=== PATIENT | female | born 1990 | race Caucasian/White ===

== ENCOUNTER 2020-12-04 11:12 | Outpatient (CLI) | payer OTHER, SELFPAY ==
[2020-12-04 12:33] LABS: Thyroid Stimulating Hormone 0.037 uIU/mL (0.465-4.680)
== END 2020-12-04 11:13 | disposition home or self-care (01) ==
PROVIDERS: Visit Provider Advanced Practice Midwife
DX: E03.9 Hypothyroidism, unspecified (principal)
CPT/HCPCS: 36415; 84439; 84443

== ENCOUNTER 2021-05-22 08:23 | Emergency (ER) | payer MEDICAID, SELFPAY ==
--- NOTE | ~2021-05-22 | CT_ITS ---
EXAMINATION: CT abdomen pelvis wo con DATE: 05/22/2021 10:43 INDICATION: Flank pain, urinary tract infection with hematuria TECHNIQUE: Computed tomography (CT) of the abdomen and pelvis was performed without intravenous contr ast. Automated exposure control and iterative reconstruction technique were employed. The dose-length product was 431.78 mGy-cm. COMPARISON: None FINDINGS: Lung bases are clear. Heart size is normal. No pericardial or pleural effusion. Liver, gallbladder, s pleen, pancreas and bilateral adrenal glands are normal. There is subtle haziness to the left perinep hric and renal sinus fat raising suspicion for ascending urinary tract infection. Right kidney is nor mal. No urolithiasis. There are few phleboliths in the pelvis. Bladder is normal. IUD in expected pos ition within the anteverted uterus. Bilateral adnexa are unremarkable. No abnormal bowel wall thicken ing or obstruction. No free intraperitoneal gas or fluid. No pathologically enlarged abdominal or pel abelardo lymphadenopathy. Bones are unremarkable. IMPRESSION: 1. Subtle inflammatory haziness to the left perinephric and renal sinus fat raising suspicion for asc ending urinary tract infection. No urolithiasis. 2. IUD in expected position. Reviewed, dictated and finalized at location A. IMPRESSION: 1. Subtle inflammatory haziness to the left perinephric and renal sinus fat [place] suspicion for ascending urinary tract infection. No urolithiasis. 2. IUD in expected position.
--- NOTE | ~2021-05-22 | XR_ITS ---
EXAMINATION: XR abdomen/kub 1V DATE: 05/22/2021 10:12 INDICATION: Left-sided flank pain TECHNIQUE: A supine view of the abdomen on 2 radiographs was obtained. COMPARISON: None FINDINGS: A few small round calcifications in the pelvis and the largest on the right measuring 4 mm and measur ing between 2-3 mm on the left, most likely representing phleboliths although distal ureteral stones cannot be absolutely excluded. IUD in expected position in the central pelvis. Normal bowel gas patte rn. Bones are unremarkable. IMPRESSION: 1. A few 2-4 mm round calcifications in the pelvis most likely representing phleboliths although a di stal ureteral stone on either side cannot be excluded. 2. IUD in expected position. Reviewed, dictated and finalized at location A. IMPRESSION: 1. A few 2-4 mm round calcifications in the pelvis most likely representing phl eboliths although a distal ureteral stone on either side cannot be excluded. 2. IUD in expected position.
--- NOTE | ~2021-05-22 | XR_ITS ---
EXAMINATION: XR chest 1V portable DATE: 05/22/2021 09:05 INDICATION: Fever and chills TECHNIQUE: frontal view of the chest was obtained. COMPARISON: Chest radiograph dated 01/03/2020 FINDINGS: Small linear band of discoid atelectasis at the right lung base. No pulmonary edema, pleural effusion or pneumothorax. The cardiomediastinal silhouette is normal. Visualized bones and soft tissues are u nremarkable. IMPRESSION: 1. Mild discoid atelectasis at the right lung base. No other acute cardiopulmonary disease. Reviewed, dictated and finalized at location A. IMPRESSION: 1. Mild discoid atelectasis at the right lung base. No other acute cardiopulmon chetan disease.
[2021-05-22 08:31] VITALS: BP 117/79; PULSE 94; RESP 15; TEMP 37.1; O2SAT 100
--- NOTE | 2021-05-22 09:39 | ED.GENADULT ---
HPI - General Adult General Chief complaint: Urogenital-Female Stated complaint: back pain, fever/chills Time Seen by Provider: 05/22/21 08:29 Source: patient and RN notes reviewed Mode of arrival: ambulatory Limitations: no limitations History of Present Illness HPI narrative: This is a 31 year old female who presents for evaluation of fever. Patient states she developed fever and chills on Wednesday. She reports she last had a fever last night. Her temperature was 101. She denies having fever today and she has not taken any medication today. She also reports associated body aches, lower back pain. She denies cough, sob, vomiting or diarrhea. She reports abdominal pain when she has fever and body aches. She works in [employer] so she was worried about COVID exposure. She was tested for COVID yesterday and her results were negative. She spoke to a friend who recommended that she come to ER for evaluation of possible kidney stone or kidney infection. She denies dysuria, increased urinary frequency or hematuria. Her pain is minimal now. Related Data Home Medications Medication Instructions Recorded Confirmed levothyroxine 05/22/21 Allergies Allergy/AdvReac Type Severity Reaction Status Date / Time No Known Allergies Allergy Verified 05/22/21 08:45 Review of Systems Review of Systems: All systems reviewed & are unremarkable except as noted in HPI and below Constitutional: Constitutional: Reports chills, Reports fatigue and Reports fever(s) ENT: Denies nasal congestion and Denies sore throat Cardiovascular: Cardiovascular: Denies chest pain Respiratory: Respiratory: Denies cough and Denies dyspnea Gastrointestinal: Gastrointestinal: Reports abdominal pain, Denies diarrhea, Reports nausea and Denies vomiting Genitourinary: Genitourinary: Denies hematuria and Denies dysuria Musculoskeletal: Musculoskeletal: Reports back pain and Reports myalgias PMFSH Past Medical History Medical History (Updated 05/22/21 @ 12:45 by Jeaneth Méndez MD) Hypothyroidism Surgical History Surgical History (Updated 05/22/21 @ 09:40 by Jeaneth Méndez MD) Hx of appendectomy Social History Social History (Updated 05/22/21 @ 09:40 by Jeaneth Méndez MD) Smoking status: Never smoker Exam Narrative: GENERAL: Well-appearing, well-nourished, and in no acute distress. HEAD: Normocephalic, atraumatic EYES: PERRLA and EOMI, conjunctiva clear without discharge EARS: TM's clear bilaterally without erythema or dullness NOSE: Nares clear, no rhinorrhea or epistaxis THROAT:Mucous membranes moist, Oropharynx normal without erythema, exudate, peritonsillar swelling or fluctuance NECK: Supple, without lymphadenopathy or mass RESPIRATORY: No respiratory distress, Airway patent, Respirations non-labored, Clear to auscultation without rales, rhonchi or wheeze HEART: Regular rate and rhythm. No murmur heard. Normal peripheral pulses. ABDOMEN: Soft, nontender, nondistended, normal active bowel sounds. No masses. No rebound or guarding, No organomegaly. EXTREMITIES: No edema, normal strength with full range of motion. SKIN: Warm, dry, normal color without rash NEURO: Alert and oriented x3. CN 2-12 grossly intact. No focal deficits. PSYCH: Normal mood and affect. Course Reevaluation(s) Reevaluation #1: Patient was found to have ascending UTI with out kidney stones. Labs are other levi unremarkable. I discussed discharge plan and treatment. Date: 05/22/21 Time: 12:43 Vital Signs Vital signs: Vital Signs Temperature 98.7 F 05/22/21 08:31 Pulse Rate 94 05/22/21 08:31 Respiratory Rate 15 05/22/21 08:31 Blood Pressure 117/79 05/22/21 08:31 Pulse Oximetry 100 05/22/21 08:31 Temperature 99.9 F H 05/22/21 11:33 Pulse Rate 82 05/22/21 13:00 Respiratory Rate 16 05/22/21 13:00 Blood Pressure 101/64 05/22/21 13:00 Pulse Oximetry 100 05/22/21 13:00 Medical Decision Ma
[2021-05-22 09:44] LABS: Basophils Percent Auto 0.3 % (0.2-1.2); Eosinophils Absolute Auto 0.2 K/mm3 (0-0.3); Eosinophils Percent Auto 1.7 % (0-4.4); Hematocrit 39.1 % (37.0-47.0); Hemoglobin 12.7 g/dL (12.0-15.0); Immature Granulocyte Absolute 0.04 K/mm3 (0.00-0.031); Immature Granulocyte Percent A 0.4 % (0-0.5); Lymphocytes Absolute Auto 1.13 K/mm3 (0.9-3.2); Lymphocytes Percent Auto 10.2 % (18.3-44.2); Mean Corpuscular HGB Conc 32.5 g/dl (32-36); Mean Corpuscular Hemoglobin 28.5 pg (26-34); Mean Corpuscular Volume 87.9 fl (80-100); Mean Platelet Volume 10.7 fl (7.4-10.4); Monocytes Absolute Auto 1.3 K/mm3 (0.1-0.6); Monocytes Percent Auto 12.1 % (2.6-8.5); Neutrophils Absolute Auto 8.4 K/mm3 (1.3-6.7); Neutrophils Percent Auto 75.3 % (45.5-73.1); Platelet Count Result 257 k/mm3 (150-375); Red Blood Count 4.45 M/mm3 (4.2-5.4); Red Cell Distribution Width 14.1 % (11.5-14.5); White Blood Count 11.1 K/mm3 (4.5-10.0)
[2021-05-22 09:49] LABS: Add Urine Microscopic? YES; Appearance Urine Cloudy (Clear); Bacteria Urine 1+ /hpf; Bilirubin Urine Negative (Negative); Blood Urine 1+ (Negative); Color Urine Yellow (Yellow); Glucose Urine UA Negative (Negative); Ketones Urine Negative (Negative); Leukocyte Esterase Ur 2+ LEU/UL (Negative); Mucus Urine Rare /lpf; Nitrate Urine Positive (Negative); Protein Urine 1+ mg/dL (Negative); Specific Grav Ur 1.017 (1.001-1.035); Squamous Epithelial Cell Urine Moderate /hpf (Few); Urobilinogen Urine Negative mg/dL (<2.0); WBC Urine >75 /hpf
[2021-05-22 09:54] LABS: Lactic Acid Reflex 0.7 mmol/L (0.7-2.1)
[2021-05-22 09:59] LABS: Alanine Aminotransferase 19 U/L (4-35); Albumin Level 3.8 g/dL (3.5-5.1); Alkaline Phosphatase 60 U/L (38-126); Anion Gap 11 mmol/L (8-16); Aspartate Amino Transferase 22 U/L (14-36); Bilirubin,Total 0.5 mg/dL (0.2-1.3); Blood Urea Nitrogen 12 mg/dL (7-17); Calcium 9.3 mg/dL (8.4-10.2); Carbon Dioxide 24 mmol/L (22-30); Chloride 104 mmol/L (98-107); Estimated Glomerular Filt Rate > 60; Glucose 64 mg/dL (65-110); Lipase 60 U/L (23-300); Magnesium 1.8 mg/dL (1.6-2.3); Potassium 3.9 mmol/L (3.4-5.0); Sodium 139 mmol/L (137-145)
[2021-05-22 11:00] VITALS: BP 107/61; PULSE 88; RESP 15; O2SAT 99
[2021-05-22 11:33] VITALS: TEMP 37.7
[2021-05-22] MEDS: KETOROLAC 30 MG/ML VIAL (*BKC) IV PUSH (11:43)
[2021-05-22 13:00] VITALS: BP 101/64; PULSE 82; RESP 16; O2SAT 100
== END 2021-05-22 13:17 | disposition home or self-care (01) ==
PROVIDERS: Emergency Provider General Practice; PCP Family Medicine
DX: N12 Tubulo-interstitial nephritis, not specified as acute or chronic (principal); E03.9 Hypothyroidism, unspecified; Z97.5 Presence of (intrauterine) contraceptive device
CPT/HCPCS: 36415; 71045; 74018; 74176; 80053; 81001; 83605; 83690; 83735; 85025; 86140; 87077; 87081; 87086; 87088; 87186; 87804; 87880; 96365; 96367; 96375; 99284; J0131; J0696; J1885

== ENCOUNTER 2024-06-03 01:14 | Outpatient (NON) | payer OTHER, SELFPAY | END 2024-06-03 01:15 | disposition home or self-care (01) | LOC: ANHOBOP 01:16 | PROVIDERS: PCP Family Medicine; Visit Provider Anesthesiology | DX: K42.9 Umbilical hernia without obstruction or gangrene (principal) | CPT/HCPCS: 36415; 86850; 86900; 86901 ==

== ENCOUNTER 2024-06-08 08:14 | Outpatient (CLI) | payer OTHER, SELFPAY ==
[2024-06-08 08:37] LABS: Hematocrit 44.7 % (37.0-47.0); Hemoglobin 14.5 g/dL (12.0-15.0); Mean Corpuscular HGB Conc 32.4 g/dl (32-36); Mean Corpuscular Hemoglobin 28.9 pg (26-34); Mean Corpuscular Volume 89.2 fl (80-100); Mean Platelet Volume 10.3 fl (7.4-10.4); Platelet Count Result 264 k/mm3 (150-375); Red Blood Count 5.01 M/mm3 (4.2-5.4)
[2024-06-08 08:47] LABS: Alanine Aminotransferase 15 U/L (6-35); Albumin Level 4.4 g/dL (3.5-5.1); Alkaline Phosphatase 53 U/L (38-126); Anion Gap 9 mmol/L (4-12); Aspartate Amino Transferase 21 U/L (14-36); Bilirubin,Total 0.7 mg/dL (0.2-1.3); Blood Urea Nitrogen 13 mg/dL (7-17); Calcium 9.3 mg/dL (8.4-10.2); Carbon Dioxide 28 mmol/L (22-30); Chloride 101 mmol/L (98-107); Cholesterol 215 mg/dL (0-200); Estimated Glomerular Filt Rate > 60; Glucose 90 mg/dL (65-110); HDL Direct 53 mg/dL; Potassium 4.3 mmol/L (3.4-5.0); Sodium 138 mmol/L (137-145); Triglycerides 104 mg/dL (<150)
[2024-06-08 08:52] LABS: Add Urine Microscopic? YES; Appearance Urine Clear (Clear); Bacteria Urine Rare /hpf; Bilirubin Urine Negative (Negative); Blood Urine Negative (Negative); Color Urine Yellow (Yellow); Glucose Urine UA Negative (Negative); Ketones Urine Negative (Negative); Leukocyte Esterase Ur 1+ LEU/UL (Negative); Need Manual Microscopic Reviewed; Nitrate Urine Negative (Negative); Non Pathogenic Casts 0-2; Protein Urine Negative (Negative); RBC Urine 0-2 /hpf (0-2); Squamous Epithelial Cell Urine Occasional /hpf (Few); Urobilinogen Urine 0.2 mg/dL (<2.0); WBC Urine 0-5 /hpf (0-3)
[2024-06-08 08:58] LABS: LDL Cholesterol Direct 127 mg/dL
[2024-06-08 09:25] LABS: Hemoglobin A1C 5.6 % (<5.7)
== END 2024-06-08 08:15 | disposition home or self-care (01) ==
PROVIDERS: PCP Family Medicine; Visit Provider Family Medicine
DX: Z00.00 Encounter for general adult medical examination without abnormal findings (principal); E03.9 Hypothyroidism, unspecified
CPT/HCPCS: 36415; 80053; 80061; 81001; 83036; 84443; 85027

== ENCOUNTER 2024-06-12 02:23 | Day surgery (SDC) | payer OTHER, SELFPAY ==
[2024-06-02 16:38] VITALS: BMI 38.0
--- NOTE | 2024-06-02 17:03 | PC.NURSE ---
Report to the Outpatient Waiting Room, entrance under the green pavilion located off [facility], at 0600 on 06-12-24. Planned Procedure Time: 0730. Time changes happen often and if your time is changed the preop area will call you the afternoon before. - You and your visitor will be asked to self-screen and do not enter if you have any COVID symptoms. - A mask is optional within the hospital at this time. Patients may have clear liquids (water, carbonated beverages, clear teas, apple juice) until 3 hours prior to surgery with a maximum of 20 ounces. 0430 - No food from midnight until time of surgery - Infants may have breast milk until 4 hours before surgery, formula 6 hours prior to surgery. - Children will be allowed to drink immediately following surgery. If applicable, please bring a bottle or sippy cup to assist with drinking. Juice, water, soda, and popsicles are readily available. For infants on formula, please bring formula the day of surgery. Pacifiers are allowed. Take the following medications with a SIP of water the morning of surgery: levothyroxine, tramadol if needed DO NOT STOP ANY OF YOUR OTHER PRESCRIPTION MEDICATIONS PRIOR TO SURGERY ?EXCEPT THE FOLLOWING Medications to discontinue per physician: ibuprofen Date to take last dose: Per Dr. Bernard Please no make-up, nail yi, hairspray, perfume, deodorant, or body powder the day of surgery. No jewelry (including any body piercings) or valuables the day of surgery, leave them at home. Please take a shower or bath the night before, or the morning of, surgery with an antibacterial soap. Wear comfortable, loose fitting clothing. Children are encouraged to wear pajamas. - Jewelry must be removed prior to entering the operating room. Rings and piercings that are not removed may be cut off. - The hospital will not accept responsibility for valuables. - Please leave all valuables, including medications, at home the day of surgery. If you are going home after surgery, a licensed motor vehicle escort driver must drive you home. - NO public transportation without another adult if you receive anesthesia. - We recommend that an adult stay with you for 24 hours following discharge. - We also recommend that you do not drive, make important decision, drink alcoholic beverages, or take any drugs that were not prescribed by your health care provider for at least 24 hours after your discharge time. For Pediatric surgeries, we recommend two adults accompany the child home. Follow any additional instructions given to you from your surgeon. If you or anyone in your household have experienced Covid symptoms in the past week, please notify your surgeon or the nurse liaison at the phone number below for possible testing. Telephone instructions given to Dulce Maria Schumacher and asked if any additional questions and then verbalized understanding. Patient advised to call surgeon office or pre surgery nurse liaison [phone] if any additional questions.
[2024-06-12] VITALS (12 sets, daily range): BP systolic 86–127; BP diastolic 61–78; PULSE 68–100; RESP 12–17; TEMP 36.3; O2SAT 92–100
[2024-06-12] MEDS: LACTATED RINGERS 1,000 ML 30 ML IV CONT ×2 (06:40→09:20)
[2024-06-12] MEDS: ACETAMINOPHEN 500 MG TABLET 1000 MG PO (06:42)
[2024-06-12] MEDS: KETOROLAC 15 MG/ML VIAL (*BKC) IV PUSH ×2 (06:43→12:17)
--- NOTE | 2024-06-12 07:08 | WPDANESEPPF ---
Anes - Initial Pre Proc Eval Procedure: Operation Date: 06/12/24 07:30 Proposed Procedures p Robotic Assisted Umbilical Hernia Repair with Mesh - Ryasa Bernard MD Date/Time: 06/12/24 07:08 Surgeon: Raysa Bernard MD Pre Op Diagnosis: umbilical hernia Patient Data Age: 34 Gender: F Height: 1.73 m Weight: 115.6 kg Last Vital Signs Temp 97.4 F L 06/12/24 06:24 Pulse 99 06/12/24 06:24 Resp 16 06/12/24 06:24 BP 127/66 06/12/24 06:24 Pulse Ox 95 06/12/24 06:24 O2 Del Method Room Air 06/12/24 06:24 Allergies Allergy/AdvReac Type Severity Reaction Status Date / Time No Known Allergies Allergy Verified 06/06/24 13:35 Home Medications Medication Instructions Recorded Confirmed Type tramadol 50 mg tablet 50 mg PO Q6H PRN pain #30 tabs 03/02/24 06/12/24 Rx levonorgestrel 21 mcg/24 hr (up to 1 device intrauterine ONCE 06/02/24 06/12/24 History 8 years) 52 mg intrauterine device (Mirena) zolpidem 5 mg tablet (Ambien) 5 mg PO QHS PRN insomnia #30 tabs 06/06/24 06/12/24 Rx levothyroxine 200 mcg tablet 200 mcg PO DAILY #30 tabs 06/08/24 06/12/24 Rx Patient hx anesthesia problems: none Family hx anesthesia problems: none Results Review: All pre-operative results and documents have been reviewed as part of the pre-operative evaluation. [facility] Past Medical History Medical History Chronic insomnia Hypothyroidism Surgical History Surgical History Hx of Achilles tendon repair 2016, 2018 Hx of appendectomy Hx of section 2009 Family History Family History Other Cerebrovascular accident Diabetes mellitus Heart disease Hypertension Kidney disease Social History Social History Smoking status: Never smoker Second hand tobacco smoke exposure: No Alcohol intake: current Drinks per week: 2 Alcohol use details: Rarely Substance use: never Substance use type: does not use Do You Feel Safe in your Home?: Yes Lack of Transportation: No Lack of Food: Never True Current Housing: I Have Housing Concerned About Future Housing: No Difficulty Paying Gas/Electric Bills: No Difficulty Paying for Meds: No Currently Unemployed: No Education: Associate Degree Difficulty w/ Childcare or Family Care: No Living arrangements: with family Spiritual care concerns: No Anes - Eval Final PreProcedure Day of Procedure 06/12/24 07:08 Patient weight: obese Heart: regular rate and rhythm Lungs: clear to auscultation Airway: Mallampati scale Neurological: alert and oriented Last oral intake: >/= 8 hours ASA classification: II Emergent: no Anesthetic plan: proceed Anesthesia type and monitoring: general ETT and standard monitoring Results Review: All pre-operative results and documents have been reviewed as part of the pre-operative evaluation. 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 Informed Consent: The patient's anesthetic plan and its attendant risks and benefits were discussed with the patient/family/POA. Questions were solicited and answers provided to the satisfaction of the patient/family/POA.
[2024-06-12 07:17] LABS: BEDSIDEPREGUCG Negative
--- NOTE | 2024-06-12 07:25 | PM.IMHP ---
H&P: HPI History of Present Illness Date/Time: 06/12/24 07:25 Chief Complaint: Umbilical hernia Narrative: Dulce Maria is a 34 y/o female who presents to the office for re-eval of umbilical hernia. She was seen in May of last year for the umbilical hernia. She feels the bulge has gotten larger and is causing increased discomfort as well. She states the discomfort is worse at the end of the day after she has been working and lifting. Review of Systems Review of Systems: All systems reviewed & are unremarkable except as noted in HPI and below PMFSH Past Medical History Medical History Chronic insomnia Hypothyroidism Surgical History Surgical History Hx of Achilles tendon repair 2016, 2018 Hx of appendectomy Hx of section 2009 Family History Family History Other Cerebrovascular accident Diabetes mellitus Heart disease Hypertension Kidney disease Social History Social History Smoking status: Never smoker Second hand tobacco smoke exposure: No Alcohol intake: current Drinks per week: 2 Alcohol use details: Rarely Substance use: never Substance use type: does not use Do You Feel Safe in your Home?: Yes Lack of Transportation: No Lack of Food: Never True Current Housing: I Have Housing Concerned About Future Housing: No Difficulty Paying Gas/Electric Bills: No Difficulty Paying for Meds: No Currently Unemployed: No Education: Associate Degree Difficulty w/ Childcare or Family Care: No Living arrangements: with family Spiritual care concerns: No Meds Home Medications and Allergies Home Medications Medication Instructions Recorded Confirmed Type tramadol 50 mg tablet 50 mg PO Q6H PRN pain #30 tabs 03/02/24 06/12/24 Rx levonorgestrel 21 mcg/24 hr (up to 1 device intrauterine ONCE 06/02/24 06/12/24 History 8 years) 52 mg intrauterine device (Mirena) zolpidem 5 mg tablet (Ambien) 5 mg PO QHS PRN insomnia #30 tabs 06/06/24 06/12/24 Rx levothyroxine 200 mcg tablet 200 mcg PO DAILY #30 tabs 06/08/24 06/12/24 Rx Allergies Allergy/AdvReac Type Severity Reaction Status Date / Time No Known Allergies Allergy Verified 06/06/24 13:35 Vital Signs Vital Signs - 24 hr 06/12/24 06:24 Temperature 36.3 C L Pulse Rate 99 Respiratory Rate 16 Blood Pressure 127/66 Pulse Oximetry 95 Oxygen Delivery Room Air Exam Const: General: cooperative, comfortable and no acute distress Resp: Auscultation: clear to auscultation bilaterally Cardio: Rate: regular rate Rhythm: regular rhythm GI: Inspection: normal to inspection and non-distended GI Palp: Yes abdominal tenderness, Yes Soft to palpation, Yes Tenderness to palpation present (GI) and Yes Hernia present Other: 3.5 cm umbilical hernia Skin: General skin exam: normal color and no rashes or lesions noted Assessment and Plan Assessment and plan (1) Umbilical hernia: Qualifiers: Obstruction and gangrene presence: without obstruction or gangrene Qualified Code(s): K42.9 - Umbilical hernia without obstruction or gangrene Code(s): K42.9 - Umbilical hernia without obstruction or gangrene Status: Acute Assessment and Plan: will set up for robotic assisted repair with mesh
--- NOTE | 2024-06-12 07:27 | WPDHPUPDATE1 ---
History and Physical Update Update Date/Time: 06/12/24 07:27 History and Physical has been reviewed, including an updated exam of the patient. There are NO changes in the patient's condition. Risks, benefits, and alternatives have been discussed and questions answered. Patient agrees to proceed with procedure.
[2024-06-12] MEDS: ceFAZolin 2 GM/D5W 50 ML 2 GM/50 ML BAG IVPB (07:33)
[2024-06-12] MEDS: BUPIVACAINE/EPINEPHRINE 0.5% 10 ML VIAL 30 ML INFILTRATE (07:55)
--- NOTE | 2024-06-12 09:20 | W.PM.PROC2 ---
Procedure Note - Detailed Date of Procedure 06/12/24 Pre-op Diagnosis umbilical hernia, supraumbilical ventral hernia Post-op Diagnosis Same Procedure Performed robotic assisted repair umbilical hernia, supraumbilical ventral hernia, total defect size measuring approximately 4 cm Surgeon Raysa Bernard MD Anesthesia General Indications 34-year-old female presenting to the office with worsening periumbilical hernia. The patient reports the hernia has been present about a year and has been slowly enlarging and becoming more symptomatic. Findings small umbilical hernia measuring approximately 1 cm, supraumbilical ventral hernia measuring 3 cm Description of Procedure The patient was taken the operating room placed in the supine position. After adequate induction of general anesthesia, the patient was prepped and draped in normal sterile fashion. A time-out was then done to verify the patient's identity as well as the procedure being performed. I began by making a 5 mm incision in the left upper quadrant. Through this, a Veress needle was placed into the peritoneal cavity and CO2 gas was insufflated. After adequate pneumoperitoneum was achieved, a 5 mm trocar was placed through this incision. I then placed the laparoscope through this trocar site and under direct visualization I placed a 8 mm port in the left mid abdomen as well as an additional 8 mm port in the left lower abdomen. I then moved the camera to the lower port and replaced the 5 mm port with a 8 mm port. The robot was then docked to the 3 port sites. I then went to the robotic console. I began by identifying the hernia. A moderate-sized hernia was noted in the supraumbilical region. Using graspers, I was able to reduce this hernia. The hernia was noted to contain a large amount of preperitoneal fat and omentum. Once reduced, I also reduced and dissected out the hernia sac. This defect was noted to measure 3 cm. Further dissection revealed a smaller umbilical hernia that measured approximately 1 cm. I then closed both defects with 0 strata fix suture. I then placed a 15 x 10 cm symbotex mesh into the abdominal cavity. The Vicryl stitch was placed in the middle of the mesh and brought up centering the mesh over the larger defect. Once this was done, I used 2 0 V lock suture x 2 to circumferentially suture the mesh to the abdominal. Once the mesh was completely sutured in, I was happy with our tension-free repair. The mesh was noted to have good overlap of the defects. At this point, the robot was undocked and all ports were removed. All port sites were then closed with 4 O Monocryl subcuticular suture. The patient tolerated the procedure well, is extubated in the operating room postoperative, and transferred to the recovery room in stable condition. Implants 15x10 cm Ventralight mesh Estimated Blood Loss 25 Drains No Packing No Pathology None sent Complications No immediate complications Condition Stable Disposition PACU [facility] Billing Surgery - Charge Forward: Surgery Billing
[2024-06-12] MEDS: fentaNYL CITRATE INJ (*CRX) 100 MCG/2 ML VIAL 25 MCG IV PUSH ×8 (09:28→09:42)
[2024-06-12] MEDS: HYDROmorphone HCL INJ (*CRX) 1 MG/ML SYR 0.25 MG IV PUSH ×4 (09:50→09:56)
[2024-06-12] MEDS: diazePAM INJ (*CRX) 10 MG/2 ML SYRINGE 2 MG IV PUSH ×2 (10:20→10:35)
[2024-06-12] MEDS: ONDANSETRON INJ 4 MG/2 ML VIAL IV PUSH (10:47)
[2024-06-12] MEDS: oxyCODONE HCL (*CRX) 5 MG TAB IR PO (11:10)
[2024-06-12] MEDS: diphenhydrAMINE HCl INJ 50 MG/ML VIAL 12.5 MG IV PUSH (12:35)
== END 2024-06-12 12:40 | disposition home or self-care (01) ==
PROVIDERS: PCP Family Medicine; Visit Provider Surgery
PROC: (CPT 49593; principal; 2024-06-12 07:30)
DX: K42.9 Umbilical hernia without obstruction or gangrene (principal); E03.9 Hypothyroidism, unspecified; F51.04 Psychophysiologic insomnia; E66.9 Obesity, unspecified; Z68.38 Body mass index [BMI] 38.0-38.9, adult; Z79.891 Long term (current) use of opiate analgesic; Z98.890 Other specified postprocedural states; Z82.49 Family history of ischemic heart disease and other diseases of the circulatory system
CPT/HCPCS: 49593; S2900; A9270; C1781; J0690; J1100; J1170; J1200; J1885; J2250; J2405; J2704; J3010; J3360; J7030; J7120

== ENCOUNTER 2024-07-28 14:08 | Emergency (ER) | payer OTHER, SELFPAY ==
[2024-07-28 14:16] VITALS: BP 120/74; PULSE 116; RESP 16; TEMP 37.2; O2SAT 99
[2024-07-28 14:47] LABS: EDSTREPNEGPOS1 Positive (Negative)
--- NOTE | 2024-07-28 15:14 | ED.URI ---
HPI - URI/Sore Throat General Chief Complaint: Upper Respiratory Infection Stated Complaint: sore throat Time Seen by Provider: 07/28/24 15:07 Source: patient and RN notes reviewed Mode of arrival: ambulatory Limitations: no limitations History of Present Illness HPI Narrative: Patient presents today complaining of sore throat upon waking this morning. As the day went on she developed body aches and chills. She took a tramadol and some melatonin and tried to get some rest for her work shift tonight but was unable to sleep. Her 5-year-old child currently has impetigo Related Data Home Medications Medication Instructions Recorded Confirmed levonorgestrel 21 mcg/24 hr (up to 1 device intrauterine ONCE 06/02/24 07/28/24 8 years) 52 mg intrauterine device (Mirena) semaglutide (weight loss) 0.25 0.25 mg subcut WEEKLY 07/28/24 07/28/24 mg/0.5 mL subcutaneous pen injector (Wegovy) Allergies Allergy/AdvReac Type Severity Reaction Status Date / Time No Known Allergies Allergy Verified 07/28/24 14:12 Review of Systems Review of Systems: CONSTITUTIONAL: Denies fever, or sweats.+ body aches, chills EYES: Denies visual changes, redness, or discharge. ENT: Denies rhinorrhea, congestion, or otalgia.+ sore throat CARDIOVASCULAR: Denies chest pain, palpitations, or edema. RESPIRATORY: Denies cough or dyspnea. GASTROINTESTINAL: Denies abdominal pain, nausea, vomiting, or diarrhea. GENITOURINARY: Denies dysuria or hematuria. SKIN: Denies rash, itching, or wounds. MUSCULOSKELETAL: Denies back pain, joint pain, or myalgia. NEUROLOGIC: Denies headache, numbness, tingling, or weakness. PSYCH: Denies depression or anxiety. [facility] Past Medical History Medical History Chronic insomnia Hypothyroidism Surgical History Surgical History Hx of Achilles tendon repair 2016, 2018 Hx of appendectomy Hx of section 2009 Hx of umbilical hernia repair Raysa Bernard MD 06/12/24 Family History Family History Other Cerebrovascular accident Diabetes mellitus Heart disease Hypertension Kidney disease Social History Social History Smoking status: Never smoker Second hand tobacco smoke exposure: No Alcohol intake: current Drinks per week: 2 Alcohol use details: Rarely Substance use: never Substance use type: does not use Do You Feel Safe in your Home?: Yes Lack of Transportation: No Lack of Food: Never True Current Housing: I Have Housing Concerned About Future Housing: No Difficulty Paying Gas/Electric Bills: No Difficulty Paying for Meds: No Currently Unemployed: No Education: Associate Degree Difficulty w/ Childcare or Family Care: No Living arrangements: with family Spiritual care concerns: No Comments At time of signature, I have reviewed and agree with nursing past medical, surgical, social and family history unless otherwise noted. Please see nursing chart for further information. There is no relevant family history pertinent to the presenting complaint Exam Narrative: GENERAL: Well-appearing, well-nourished, and in no acute distress. HEAD: Normocephalic, atraumatic. EYES: EOMI. No redness or drainage. Conjunctivae normal. ENT: Mucous membranes pink and moist. Nares clear. No rhinorrhea. TMs normal bilaterally. Throat erythematous and mildly edematous without exudate. Uvula midline. NECK: Normal AROM. Supple. No lymphadenopathy. CHEST: No respiratory distress. Clear to auscultation. HEART: Regular rate and rhythm. No murmur appreciated. EXTREMITIES: Normal range of motion. No edema. SKIN: Warm, dry, no rash. Capillary refill normal. Normal skin turgor. NEURO: No focal deficits. Alert and oriented x3. Gait
== END 2024-07-28 15:24 | disposition home or self-care (01) ==
PROVIDERS: Emergency Provider Nurse Practitioner; PCP Family Medicine
DX: J02.0 Streptococcal pharyngitis (principal); E03.9 Hypothyroidism, unspecified
CPT/HCPCS: 87880; 99213; G0463

== ENCOUNTER 2024-12-11 09:30 | Outpatient (CLI) | payer OTHER, SELFPAY ==
--- OUTSIDE RECORDS SUMMARY | 2024-12-11 12:13 | XMS_ITS | Clinical Summary ---
Author Organization [facility] Address [address] [place] [id number] Care Team Providers Care Joint Setter Name Role Phone Theron Roth MD Primary Care Provider [phone] Allergies No known active allergies Medications ketorolac (TORADOL) 10 mg tablet Take 1 tablet (10 mg total) by mouth every 6 (six) hours as needed for pain 20 tablet 02/28/2023 Active HYDROcodone-acet aminophen (NORCO) 5-325 mg per tabletIndication s:Pain Take 1 tablet by mouth every 6 (six) hours as needed for pain 15 tablet 02/28/2023 Active Surgical History Surgery Date Site/Laterality Comments APPENDECTOMY SECTION FOOT SURGERY Right Medical History Medical History Date Comments Hypothyroid Social History Tobacco Use Types Packs/Day Years Used Date Smoking Tobacco: Never Assessed Comments No Sex and Gender Information Value Date Recorded Sex Assigned at Not on file 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 Gender Identity Not on file Sexual Orientation Not on file Obstetrics History Last Filed Vital Signs Vital Sign Reading Time Taken Comments Blood Pressure 119/82 02/28/2023 5:37 AM CDT Pulse 85 02/28/2023 5:37 AM CDT Temperature 36.9 C (98.4 F) 02/28/2023 5:37 AM CDT Respiratory Rate 19 02/28/2023 5:37 AM CDT Oxygen Saturation 98% 02/28/2023 5:37 AM CDT Inhaled Oxygen Concentration - - Weight 99.8 kg (220 lb) 02/28/2023 5:37 AM CDT Height 172.7 cm (5' 8 ) 02/28/2023 5:37 AM CDT Body Mass Index 33.45 02/28/2023 5:37 AM CDT Plan of Treatment Health Maintenance Due Date Last Done Comments Cervical Cancer Screening 1989 Depression Screening 1989 Hepatitis C Screening 1989 Varicella Vaccines (1 of 2 - 13+ 2-dose series) 2002 Hepatitis B Screening 2007 Regular Well Visit/Exam 18-64 2007 Covid-19 Vaccine (2023-2 5 season) 2024 10/31/2021, 03/31/2021, 03/10/2021 Influenza Vaccine (#1) 2024 08/09/2022 DTaP/Tdap/Td Vaccine (2 - Td or Tdap) 10/03/2028 10/03/2018 HPV Vaccines Aged Out No longer eligi ble based on patient's age to complete this topic Pneumococcal vaccine <65 Aged Out No longer eligible based on patient's age to complete this topic Insurance [employer] [id number] [facility] [employer] [id number] Care Teams Joint Setter Relationship Specialty Start Date End Date Theron Roth MD PCP - General 06/29/17
--- OUTSIDE RECORDS SUMMARY | 2024-12-11 12:13 | XMS_ITS | Referral Summary ---
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 Name Role Phone Theron Roth MD Primary Care Provider [phone] Allergies No known active allergies Medications ketorolac (TORADOL) 10 mg tablet Take 1 tablet (10 mg total) by mouth every 6 (six) hours as needed for pain 20 tablet 02/28/2023 Active HYDROcodone-acet aminophen (NORCO) 5-325 mg per tabletIndication s:Pain Take 1 tablet by mouth every 6 (six) hours as needed for pain 15 tablet 02/28/2023 Active Social History Tobacco Use Types Packs/Day Years Used Date Smoking Tobacco: Never Assessed Comments No Sex and Gender Information Value Date Recorded Sex Assigned at Not on file 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
== END 2024-12-11 09:31 | disposition home or self-care (01) ==
PROVIDERS: PCP Family Medicine; Visit Provider Family Medicine
DX: E03.9 Hypothyroidism, unspecified (principal)
CPT/HCPCS: 36415; 84443